=== PATIENT | female | born 1990 | race Caucasian/White ===

== ENCOUNTER 2017-12-15 20:54 | Emergency (ER) | payer BC, OTHER ==
[2017-12-15] MEDS ORDERED: SODIUM CHLORIDE 0.9% FLUSH 10 ML SOL IV PRN (21:02)
[2017-12-15] MEDS ORDERED: ASPIRIN 81 MG CHEWABLE CTB PO STA (21:02)
[2017-12-15 21:09] LABS: BASOPHILS % (AUTO) 1 % (0-3); EOSINOPHILS % (AUTO) 4 % (0-9); HEMATOCRIT 41 % (35-47); HEMOGLOBIN 13.1 gm/dl (12.0-15.5); LYMPHOCYTES % (AUTO) 31.2 % (10-50); MEAN CORPUSCULAR HEMOGLOBIN 26.9 pg (27.0-32.0); MEAN CORPUSCULAR HGB CONC 31.9 gm/dl (32.0-36.0); MEAN CORPUSCULAR VOLUME 84 fL (81-99); MONOCYTES % (AUTO) 8.5 % (0-12); NEUTROPHILS % (AUTO) 55.5 % (37-80)
[2017-12-15] MEDS ORDERED: ASPIRIN 81 MG CHEWABLE CTB ONE (21:10)
[2017-12-15] MEDS ORDERED: OMEPRAZOLE 20 MG CAPSULE PO ONE (21:15)
[2017-12-15 21:21] LABS: INR 0.97 (0.86-1.12)
[2017-12-15] MEDS ORDERED: PANTOPRAZOLE SODIUM 40 MG ECT PO ONE ×2 (21:26→21:28)
[2017-12-15 21:31] LABS: ALKALINE PHOSPHATASE 73 IU/L (46-116); ALT 20 IU/L (14-63); AST 14 IU/L (15-37); BILIRUBIN,TOTAL 0.3 mg/dl (0.2-1.0); BLOOD UREA NITROGEN 11 mg/dl (7-18); CALCIUM 9.4 mg/dl (8.5-10.1); CARBON DIOXIDE 26.5 mEq/L (21-32); CHLORIDE 101 mMol/L (98-107); CREATINE KINASE 74 U/L (26-192); CREATININE 0.68 mg/dl (0.60-1.00); GLUCOSE 129 mg/dl (74-106); POTASSIUM 3.5 mMol/L (3.5-5.1); SODIUM 137 mMol/L (136-145); THYROID STIMULATING HORMONE 0.985 uIU/ml (0.358-3.740); TROP I < 0.017 ng/ml (0.000-0.056)
[2017-12-15 21:50] VITALS: RESP 18
[2017-12-15 21:52] VITALS: TEMP 98.2
[2017-12-15] MEDS ORDERED: NAPROXEN 500 MG TAB ONE (21:54)
[2017-12-15] MEDS ORDERED: NAPROXEN 500 MG TAB PO PRN (21:54)
[2017-12-15 23:04] VITALS: O2SAT 100
[2017-12-15 23:06] VITALS: BP 128/90; PULSE 72
== END 2017-12-15 22:55 | disposition home or self-care (01) | DRG 313 ==
LOC: ED 20:54
DX: R07.89 Other chest pain (principal); E11.9 Type 2 diabetes mellitus without complications
CPT/HCPCS: 71046; 80053; 82550; 84443; 84484; 85025; 85610; 85730; 93005; 99284; A9270-GY